=== PATIENT | female | born 1975 | race Hispanic/Latino ===

== ENCOUNTER 2024-08-03 11:03 | Emergency (ER) | payer BC ==
[~2024-08-03] VITALS: Ht 215.9 cm; Wt 97.5 kg
--- NOTE | 2024-08-03 11:34 | ERN ---
General Chief Complaint: Face Pain/Problem Stated Complaint: LEFT FACE SWELLING Time Seen by MD: 11:09 Source: patient History of Present Illness Initial Comments Patient is a 48-year-old female who is seeing a dentist for an upper tooth cavity. She noted facial swelling on her left cheek starting yesterday and going into today. The swelling is relative is pain less mildly tender and warm. Patient states she has no other symptoms. Allergies: Coded Allergies: No Known Drug Allergies (Unverified Allergy, Unknown, 08/03/24) Past Medical History Past Medical History: No Pertinent History Past Surgical History: Cholecystectomy Constitutional: (-) chills, (-) diaphoresis, (-) fever, (-) malaise, (-) weakness, (-) other documentation EENTM: (-) eye pain, (-) blurred vision, (-) tearing, (-) double vision, (-) ear pain, (-) ear discharge, (-) nose pain, (-) nose congestion, (-) throat pain, (-) Throat swelling, (-) mouth pain, (-) tooth pain, (-) mouth swelling, (-) other documentation Respiratory: (-) cough, (-) orthopnea, (-) short of breath, (-) stridor, (-) wheezing, (-) other documentation Cardiovascular: (-) chest pain, (-) edema, (-) palpitations, (-) syncope, (-) dyspnea on exertion, (-) other documentation Gastrointestinal/Abdominal: (-) nausea, (-) vomiting, (-) diarrhea, (-) abdominal pain, (-) abdominal distention, (-) constipation, (-) rectal bleeding, (-) dark stool/melena, (-) other documentation Musculoskeletal: (-) Neck pain, (-) back pain, (-) Flank Pain, (-) joint pain, (-) joint swelling, (-) muscle pain, (-) muscle stiffness, (-) gout, (-) other documentation Skin: (-) laceration, (-) contusion, (-) abrasion, (-) abscess, (-) rash, (-) change in color, (-) change in hair, (-) change in nails, (-) diaphoresis, (-) dryness, (-) other documentation Physical Exam General Appearance: (+) mild distress Orientation: (+) oriented x 3 Head/Face Trauma: No Eye: bilateral eye normal inspection, bilateral eye PERRL, bilateral eye EOMI Ear, Nose, Throat: (+) hearing grossly normal, (+) normal ENT inspection, (+) moist mucous membraine, (+) normal pharynx Ear, Nose, Throat Comment Patient's left cheek is swollen mildly tender mild erythema. Examining her in her cheek left side showed no ulcers no open wounds. Dentition on that side also looked normal. The gums gums did not appear to be inflamed or bleeding. Neck: (+) normal inspection Respiratory: (+) chest non-tender, (+) lungs clear Heart: (+) regular, (+) no gallop Results Laboratory and Microbiology Lab and Micro Result Laboratory Tests Test 08/03/24 12:10 White Blood Count 7.9 K/uL (4.8-10.8) Red Blood Count 3.94 MIL/uL (4.00-5.50) L Hemoglobin 11.5 g/dL (12.0-16.0) L Hematocrit 35.0 % (36-48) L Mean Corpuscular Volume 88.8 fL (79-99) Mean Corpuscular Hemoglobin 29.2 pg (27.0-33.0) Mean Corpuscular Hemoglobin Concent 32.9 g/dL (32.0-36.0) Red Cell Distribution Width 13.4 % (11.0-15.5) Platelet Count 238 K/uL (130-400) Mean Platelet Volume 9.6 fL (7.5-10.5) Immature Granulocyte % (Auto) 0.5 % (0-1) Neutrophils (%) (Auto) 57.4 % (40.0-77.0) Lymphocytes (%) (Auto) 26.4 % (21.0-51.0) Monocytes (%) (Auto) 13.9 % (3.0-13.0) H Eosinophils (%) (Auto) 1.4 % (0.0-8.0) Basophils (%) (Auto) 0.4 % (0.0-5.0) Neutrophils # (Auto) 4.6 K/uL (1.8-7.7) Lymphocytes # (Auto) 2.1 K/uL (1.0-4.8) Monocytes # (Auto) 1.1 K/uL (0.1-1.0) H Eosinophils # (Auto) 0.11 K/uL (0.00-0.70) Basophils # (Auto) 0.03 K/uL (0.00-0.20) Absolute Immature Granulocyte (auto 0.04 K/uL (0-1) Nucleated Red Blood Cells 0.0 % (0.0-0.19) Sodium Level 141 mmol/L (136-145) Potassium Level 3.2 mmol/L (3.5-5.1) L Chloride Level 101 mmol/L (101-111) Carbon Dioxide Level 30 mmol/L (21-32) Blood Urea Nitrogen 9 mg/dL (7-18) Creatinine 0.5 mg/dL (0.5-1.0) Glomerular Filtration Rate Calc 115 mL/min (>90) Random Glucose 114 mg/dL (70-105) H Total Calcium 9.6 mg/dL (8.5-10.1) MDM Patient comes in concerned about a dental abscess causing swelling and pain in her left cheek. Her physical exam is not consistent with that although it is still a distinct possibility. Other possibilities could be a clogged salivary gland. I will get a CT of her face. Maxillofacial scan of the patient's face shows swelling inflammation near the patient's left upper jaw. No abscess. The CT scan makes it look like it is not associated with a clogged salivary gland, it could be associated with her dental caries. In either case I will send her home with a prescription for amoxicillin. ED Course Orders Procedure Category Date Status Time Basic Metabolic Panel LAB 08/03/24 Complete 11:[address] 08/03/24 Taken W/Contrast 11:39 Cbc With Differential LAB 08/03/24 Complete 12:41 Iohexol (Omnipaque) PHA 08/03/24 Complete 12:43 Current Medications Medications (Trade) Dose Ordered Sig/Ravi Route PRN Reason Start Time Stop Time Status Last Admin Dose Admin Iohexol (Omnipaque) 75 ml STK-MED ONCE IV 08/03/24 12:43 08/03/24 12:43 DC Vital Signs Date Time Temp Pulse Resp B/P (MAP) Pulse Ox O2 Delivery O2 Flow Rate FiO2 08/03/24 11:05 97.9 98 18 153/91 98 Room Air DX & DISP Disposition: Discharge Departure Impression: Primary Impression: Infected dental caries Condition: Stable Scripts Amoxicillin/Potassium Clav (Amox Tr-K Clv 875-125 mg Tab) 875 Mg-125 Mg Tablet 1 EACH PO BID for 5 Days, #10 TAB 0 Refills Prov: PAUL CLINE MD 08/03/24 Additional Instructions: Please return if you start to have fevers the swelling starts to get worse or you find that your unable to eat. Referrals: SELF,REFERRAL (PCP) PAUL CLINE MD August 03, 2024 11:34
[2024-08-03 12:32] LABS: CREATININE 0.5 mg/dL (0.5-1.0); POTASSIUM 3.2 mmol/L (3.5-5.1)
[2024-08-03] MEDS ORDERED: IOHEXOL-350 75 ML VIAL IV ONE (12:43)
[2024-08-03 12:59] LABS: BASOPHILS # (AUTO) 0.03 K/uL (0.00-0.20); BASOPHILS % (AUTO) 0.4 % (0.0-5.0); EOSINOPHILS # (AUTO) 0.11 K/uL (0.00-0.70); EOSINOPHILS % (AUTO) 1.4 % (0.0-8.0); IMMATURE GRANULOCYTE ABSOLUTE 0.04 K/uL (0-1); LYMPHOCYTES # (AUTO) 2.1 K/uL (1.0-4.8); LYMPHOCYTES % (AUTO) 26.4 % (21.0-51.0); MEAN CORPUSCULAR HEMOGLOBIN 29.2 pg (27.0-33.0); MEAN CORPUSCULAR HGB CONC 32.9 g/dL (32.0-36.0); MEAN CORPUSCULAR VOLUME 88.8 fL (79-99); MONOCYTES # (AUTO) 1.1 K/uL (0.1-1.0); MONOCYTES % (AUTO) 13.9 % (3.0-13.0); NEUTROPHILS # (AUTO) 4.6 K/uL (1.8-7.7); NEUTROPHILS % (AUTO) 57.4 % (40.0-77.0); PLATELET COUNT (AUTO) 238 K/uL (130-400); RED BLOOD CELL COUNT(AUTO) 3.94 MIL/uL (4.00-5.50); RED CELL DISTRIBUTION WIDTH 13.4 % (11.0-15.5); WHITE BLOOD COUNT (AUTO) 7.9 K/uL (4.8-10.8)
[2024-08-03] MEDS ORDERED: AMOX1TAB16 PO (13:20)
--- NOTE | 2024-08-03 13:23 | HMCIMG ---
CT MAXILLOFACIAL W/CONTRAST HISTORY: Left cheek abscess COMPARISON: None TECHNIQUE: Multiple sequential high-resolution axial images of the paranasal sinuses were obtained. Postprocessing sagittal and coronal reconstruction images were also obtained. Patient was given 75 cc of Omnipaquethrough intravenous route. FINDINGS: There is left cheek subcutaneous soft tissue swelling with inflammatory changes. Phlegmon collection is seen in this region with early abscess cannot be completely excluded. Nasal septum is deviated towards the right. There is no evidence of mucoperiosteal thickening involving the bilateral ethmoid and maxillary sinuses. The infundibula are patent bilaterally. No acute displaced fracture is seen. There is no evidence of air-fluid level in the paranasal sinuses. Parapharyngeal fat planes are preserved bilaterally. IMPRESSION: 1. No acute displaced fracture is seen. There is left cheek subcutaneous soft tissue swelling with inflammatory changes. Phlegmon collection is seen in this region with early abscess cannot be completely excluded. CT was performed with one or more following dose reduction techniques: automated exposure control, adjustment of the mA and kv according to patient's size, or use of a iterative reconstruction technique.
[2024-08-03] MEDS ORDERED: CLIN-141 PO (13:47)
[2024-08-03 13:55] VITALS: BP 149/64; PULSE 98; RESP 18; TEMP 99.7; O2SAT 98
== END 2024-08-03 14:01 | disposition home or self-care (01) ==
LOC: EDH 11:03 → EEVIPCON 11:03 → EDH 14:01
DX: K02.9 Dental caries, unspecified (principal); Z90.49 Acquired absence of other specified parts of digestive tract
CPT/HCPCS: 99284; 70487; 80048; 85025; 36415; Q9967